=== PATIENT | female | born 1980 | race Caucasian/White ===

== ENCOUNTER → 2020-04-07 | Outpatient (CLI) | payer BC, MEDICAID ==
--- NOTE | 2020-04-07 17:23 | KCIC ---
EXAMINATION: MRI RIGHT SHOULDER WITHOUT IV CONTRAST CLINICAL HISTORY: Right shoulder pain/strain. RUE numbness, LROM, soreness in rt shoulder is worse in last 6 months. TECHNIQUE: Multiplanar multisequential images obtained through the shoulder without intravenous contr ast. COMPARISON: None FINDINGS: Evaluation limited by prominent motion artifact despite multiple repeat attempts at scanning. TENDONS: - Supraspinatus: Moderate tendinosis without full-thickness tear. - Infraspinatus: Mild tendinosis without full-thickness tear. - Subscapularis: Moderate tendinosis without full-thickness tear. - Teres Minor: Intact. - Biceps Tendon: The long head biceps tendon is intact and appropriately located. MUSCLES: Muscle bulk and signal intensity are within normal limits. LABRUM: Posterior labral degeneration without discrete tear. GLENOHUMERAL JOINT: - Joint Fluid: No joint effusion or synovitis. - Cartilage: No full-thickness chondral defect visualized. ACROMIOCLAVICULAR JOINT: Marked hypertrophic acromioclavicular degenerative changes with reactive simeon ma in the distal clavicle and acromion and prominent synovial/capsular thickening and edema. Mild ass ociated mass effect on the underlying supraspinatus muscle. BONES/MARROW: No evidence of acute fracture or suspicious marrow replacing process. OTHER: No other significant abnormality identified. IMPRESSION: Mild to moderate rotator cuff tendinosis without evidence of full-thickness tear on somewhat limited evaluation. Marked hypertrophic acromioclavicular degenerative changes as described, consider dedicated shoulder radiographs for further evaluation. Electronically signed by: Juvenal Valero DO (04/07/2020 5:21 PM) [id number]
== END ==
LOC: KCIC MRI 15:15
PROVIDERS: ATTEND Family Medicine
DX: S46.919A Strain of unspecified muscle, fascia and tendon at shoulder and upper arm level, unspecified arm, initial encounter (principal); M75.81 Other shoulder lesions, right shoulder; X58.XXXA Exposure to other specified factors, initial encounter; Y93.89 Activity, other specified; Y92.89 Other specified places as the place of occurrence of the external cause; Y99.8 Other external cause status
CPT/HCPCS: 73221